=== PATIENT | female | born 1995 | race Caucasian/White ===

== ENCOUNTER 2016-10-15 15:12 | Emergency (ER) | payer OTHER ==
[~2016-10-15] VITALS: Ht 162.6 cm; Wt 89.0 kg
[2016-10-15 15:15] VITALS: Ht 162.6 cm; Wt 89.0 kg
[2016-10-15] MEDS ORDERED: ONDANSETRON (ODT) 4 MG TAB ODT STA (18:38)
[2016-10-15] MEDS ORDERED: HYDROCODONE/APAP (5/325) TAB PO ONE (19:00)
[2016-10-15 19:22] LABS: ADD SCAN DIFF NO
[2016-10-15 19:24] LABS: BASOPHIL # 0.1 10^3/ul (0.0-0.1); BASOPHILS % 0.7 % (0.0-2.0); EOSINOPHILS # 0.3 10^3/ul (0.0-0.5); EOSINOPHILS % 2.7 % (0.0-7.0); HEMATOCRIT 42.2 % (37.0-47.0); HEMOGLOBIN 13.3 g/dl (12.0-16.0); LYMPHOCYTES # 3.6 10^3/ul (0.8-2.9); LYMPHOCYTES % 28.6 % (18.0-55.0); MEAN CORPUSCULAR HEMOGLOBIN 26.8 pg (29.0-33.0); MEAN CORPUSCULAR HGB CONC 31.5 g/dl (32.0-37.0); MEAN CORPUSCULAR VOLUME 84.9 fl (72.0-104.0); MEAN PLATELET VOLUME 9.6 fl (7.4-10.4); MONOCYTE # 0.7 10^3/ul (0.3-0.9); MONOCYTES % 5.5 % (0.0-13.0); NEUTROPHIL # 7.9 10^3/ul (1.6-7.5); NEUTROPHILS % 62.3 % (30.0-74.0); PLATELET COUNT 347 10^3/UL (140-415); RED BLOOD COUNT 4.97 10^6/ul (4.20-5.40); RED CELL DISTRIBUTION WIDTH 12.9 % (11.5-14.5); WHITE BLOOD COUNT 12.7 10^3/ul (4.8-10.8)
[2016-10-15 19:29] LABS: ADD UMIC NO; URINE BILIRUBIN (Dip) NEGATIVE (NEGATIVE); URINE BLOOD (Dip) NEGATIVE (NEGATIVE); URINE COLOR LT. YELLOW (YELLOW); URINE GLUCOSE (Dip) NEGATIVE (NEGATIVE); URINE KETONES (Dip) NEGATIVE (NEGATIVE); URINE LEUKOCYTE ESTERASE (Dip) NEGATIVE (NEGATIVE); URINE NITRITE (Dip) NEGATIVE (NEGATIVE); URINE TOTAL PROTEIN (Dip) NEGATIVE (NEGATIVE); URINE UROBILINOGEN (Dip) 0.2 E.U./dL (0.1-1.0)
[2016-10-15 19:45] LABS: ALBUMIN 4.8 g/dl (3.3-4.9)
[2016-10-15 19:48] LABS: ALBUMIN/GLOBULIN RATIO 1.23; BILIRUBIN,INDIRECT 0.1 mg/dl (0-1.1); BILIRUBIN,TOTAL 0.1 mg/dl (0.2-1.3); CREATININE 0.58 mg/dl (0.44-1.00); TOTAL PROTEIN 8.7 g/dl (6.1-8.1)
[2016-10-15 19:49] LABS: CALCIUM 9.8 mg/dl (8.4-10.2)
--- NOTE | 2016-10-15 20:40 | RADRPT ---
PROCEDURE: CT Abdomen and Pelvis without contrast CLINICAL INDICATION: Lower abdominal pain TECHNIQUE: Transaxial images were obtained through the abdomen and pelvis on a multi-slice scanner without the intravenous contrast administration. No oral contrast had previously been given. Sagit chas and coronal re-formations were subsequently reconstructed. One or more of the following dose reduction techniques were used: - Automated exposure control. - Adjustment of the mA and/or kV according to patient size. - Use of iterative reconstruction technique. Radiation dose: CTDIvol = 18.27 mGy; DLP = 1180.64 mGy-cm. COMPARISON: No prior studies are available for comparison. FINDINGS: Lung bases: The visualized lung bases appear unremarkable. Liver: The liver is mildly enlarged with no focal lesion identified. Gallbladder: The gallbladder is contracted but no radiopaque stone is evident. Bile ducts: The intra and extrahepatic bile ducts are normal in caliber. Pancreas: Appears normal with no mass or inflammation evident. Spleen: The spleen is borderline enlarged. Adrenals: Normal with no mass identified. Kidneys, ureters and bladder: The kidneys are normal in size and there is no mass, pathological calc ification, or hydronephrosis evident. There is no perinephric stranding. The ureters are normal in c aliber and no ureteroliths are identified. The bladder is suboptimally distended. Reproductive organs: The uterus deviates slightly to the left of midline. A 3.5 cm right adnexal [address] is evident. Stomach and bowel: The stomach is unremarkable. There is substantial stool within the colon. The t erminal ileum appears to protrude through the ileocecal valve but there is no evidence of bowel obst ruction or inflammation. Appendix: Portions of an unremarkable appearing vermiform appendix are evident. Peritoneum: No free intraperitoneal fluid or air is identified. Aorta: Normal in caliber with no aneurysmal dilatation. IVC: Unremarkable. Lymph nodes: No pathologically enlarged nodes are identified. Osseous structures: A 1.3 cm air containing cyst is seen within the left sacral ala. A 6 mm cyst is seen within the right ilium. IMPRESSION: 1. Although the terminal ileum appears to protrude through the ileocecal valve into the colon, ther e is no evidence of bowel obstruction or inflammation. Substantial stool seen to the colon and a no rmal vermiform appendix is evident. 2. No evidence of urinary outflow obstruction or ureterolithiasis. 3. 3.5 cm right adnexal cyst. 4. Mild hepatomegaly with no focal lesion and borderline splenomegaly. 5. There is no free intraperitoneal fluid or air. 6. A 1.3 cm air containing cyst is seen in the left sacral ala and a 6 mm cyst is seen within the r ight ilium. Findings of early and minimal ileocolic intussusception were telephoned by Bogdan Carlson MD to Inez RodríguezNeftaly on 10/15/2016 at 2030 hours. Physician Yovana Date Time Electronically viewed and signed by Virgen Carlson Physician on 10/15/2016 20:39 RH/
--- NOTE | 2016-10-15 21:57 | RADRPT ---
PROCEDURE: Ultrasound of the bilateral lower extremity venous system. CLINICAL INDICATION: Bilateral leg pain and swelling, deep venous thrombosis TECHNIQUE: Sumner scale with and without compression, color doppler, spectral doppler of the venous system of the bilateral lower extremities was performed. Venous augmentation maneuvers were utilized . COMPARISON: No prior studies are available for comparison. FINDINGS: RIGHT: Common femoral vein: Patent. Femoral vein: Patent. Popliteal vein: Patent. Calf veins: Patent. No soft tissue abnormalities are identified. LEFT: Common femoral vein: Patent. Femoral vein: Patent. Popliteal vein: Patent. Calf veins: Patent. No soft tissue abnormalities are identified. IMPRESSION: No evidence of a deep vein thrombosis within the bilateral lower extremities. RPTAT: AADD .Darnell Sears MD, MD Date Time Electronically viewed and signed by .Darnell Sears MD, on 10/15/2016 21:57 .B/
[2016-10-15 22:43] VITALS: PULSE 71; RESP 20
--- NOTE | 2016-10-16 04:46 | ERD ---
ER Documentation Chief Complaint Date/Time DATE: 10/16/16 TIME: 04:32 Chief Complaint ear pain,lower ap, left ankle pain HPI This is a 21-year-old female who presents to the ED with lower abdominal pain for 3 weeks associated with bilateral ear pain and right lower extremity swelling. Abdominal pain is sharp, gradual yet intermittent. Pain is aggravated upon movement. Patient did not take any medications for symptom relief. Patient has no medical or surgical history. Denies any recent history of fever, headache, chest pain, shortness of breath, nausea, vomiting, constipation, diarrhea or dysuria. No recent sick contacts or foreign travel. Last menstrual period was during the last week of August ROS All systems reviewed and are negative except as per history of present illness. Medications Home Meds No Active Prescriptions or Reported Meds Allergies Allergies: Coded Allergies: No Known Allergy (Unverified , 07/17/14) PMhx/Soc Medical and Surgical Hx: pt denies Medical Hx, pt denies Surgical Hx History of Surgery: No Anesthesia Reaction: No Hx Neurological Disorder: No Hx Respiratory Disorders: No Hx Cardiac Disorders: No Hx Psychiatric Problems: No Hx Miscellaneous Medical Probl: No Hx Alcohol Use: No Hx Substance Use: No Hx Tobacco Use: No Physical Exam Vitals Vital Signs Date Time Temp Pulse Resp B/P Pulse Ox O2 Delivery O2 Flow Rate FiO2 10/15/16 22:43 71 20 100 Room Air 2.0 10/15/16 15:15 98.1 78 20 130/76 99 Physical Exam Physical Exam CONST: Well-developed, well-nourished, in no acute distress. Nontoxic in appearance. HEENT: Erythematous right auditory canal. Atraumatic. Normal conjunctiva. EOM intact. TM intact. Clear oropharnyx without erythema. No uvular deviation. Moist mucous membranes. Supple neck. No meningismus. No submandibular induration. RESP: Clear to auscultation bilaterally. No wheezing. CARDIO: Regular rate and rhythm, no murmurs. ABD: Diffuse tenderness in the lower abdominal area, R>L. Abdomen is soft and nondistended. No McBurney's point tenderness. No guarding or rigidity. No peritoneal signs. SKIN: No petechiae or rashes. BACK: No midline or flank tenderness. EXT: Right lower extremity edema +1. Distal pulses equal and bilateral. NEURO: Awake and alert, appropriate for age. 5/5 strength in all extremities. Normal speech. Steady gait. Result Diagram: 10/15/16190910/15/161909 Results 24 hrs Laboratory Tests Test 10/15/16 19:10 10/15/16 19:20 White Blood Count 12.710^3/ul Red Blood Count 4.9710^6/ul Hemoglobin 13.3g/dl Hematocrit 42.2% Mean Corpuscular Volume 84.9fl Mean Corpuscular Hemoglobin 26.8pg Mean Corpuscular Hemoglobin Concent 31.5g/dl Red Cell Distribution Width 12.9% Platelet Count 59686^3/UL Mean Platelet Volume 9.6fl Neutrophils % 62.3% Lymphocytes % 28.6% Monocytes % 5.5% Eosinophils % 2.7% Basophils % 0.7% Nucleated Red Blood Cells % 0.0/100WBC Neutrophils # 7.910^3/ul Lymphocytes # 3.610^3/ul Monocytes # 0.710^3/ul Eosinophils # 0.310^3/ul Basophils # 0.110^3/ul Nucleated Red Blood Cells # 0.010^3/ul Sodium Level 140mmol/L Potassium Level 4.0mmol/L Chloride Level 97mmol/L Carbon Dioxide Level 29mmol/L Anion Gap 18 Blood Urea Nitrogen 8mg/dl Creatinine 0.58mg/dl Glucose Level 88mg/dl Calcium Level 9.8mg/dl Total Bilirubin 0.1mg/dl Direct Bilirubin 0.00mg/dl Indirect Bilirubin 0.1mg/dl Aspartate Amino Transf (AST/SGOT) 25IU/L Alanine Aminotransferase (ALT/SGPT) 34IU/L Alkaline Phosphatase 67IU/L B-Type Natriuretic Peptide 36PG/ML Total Protein 8.7g/dl Albumin 4.8g/dl Globulin 3.90g/dl Albumin/Globulin Ratio 1.23 Lipase 71U/L Urine Color LT. YELLOW Urine Clarity SLIGHTLY CLOUDY Urine pH 7.5 Urine Specific Bland 1.010 Urine Ketones NEGATIVE Urine Nitrite NEGATIVE Urine Bilirubin NEGATIVE Urine Urobilinogen 0.2 E.U./dL Urine Leukocyte Esterase NEGATIVE Urine Hemoglobin NEGATIVE Urine Glucose NEGATIVE% Urine Total Protein NEGATIVE Current Medications Medications (Trade) Dose Ordered Sig/Dar Route PRN Reason Start Time Stop Time Status Last Admin Dose Admin Acetaminophen/ Hydrocodone Bitart (Emelle (5/325)) 1 tab ONCE ONCE PO 10/15/16 19:00 10/15/16 19:01 DC 10/15/16 19:15 Ondansetron HCl (Zofran Odt) 4 mg ONCE STAT ODT 10/15/16 18:38 10/15/16 18:39 DC 10/15/16 19:15 PROCEDURE: CT Abdomen and Pelvis without contrast CLINICAL INDICATION: Lower abdominal pain TECHNIQUE: Transaxial images were obtained through the abdomen and pelvis on a multi-slice scanner without the intravenous contrast administration. No oral contrast had previously been given. Sagittal and coronal re-formations were subsequently reconstructed. One or more of the following dose reduction techniques were used: - Automated exposure control. - Adjustment of the mA and/or kV according to patient size. - Use of iterative reconstruction technique. Radiation dose: CTDIvol = 18.27 mGy; DLP = 1180.64 mGy-cm. COMPARISON: No prior studies are available for comparison. FINDINGS: Lung bases: The visualized lung bases appear unremarkable. Liver: The liver is mildly enlarged with no focal lesion identified. Gallbladder: The gallbladder is contracted but no radiopaque stone is evident. Bile ducts: The intra and extrahepatic bile ducts are normal in caliber. Pancreas: Appears normal with no mass or inflammation evident. Spleen: The spleen is borderline enlarged. Adrenals: Normal with no mass identified. Kidneys, ureters and bladder: The kidneys are normal in size and there is no mass, pathological calcification, or hydronephrosis evident. There is no perinephric stranding. The ureters are normal in caliber and no ureteroliths are identified. The bladder is suboptimally distended. Reproductive organs: The uterus deviates slightly to the left of midline. A 3.5 cm right adnexal cyst is evident. Stomach and bowel: The stomach is unremarkable. There is substantial stool within the colon. The terminal ileum appears to protrude through the ileocecal valve but there is no evidence of bowel obstruction or inflammation. Appendix: Portions of an unremarkable appearing vermiform appendix are evident. Peritoneum: No free intraperitoneal fluid or air is identified. Aorta: Normal in caliber with no aneurysmal dilatation. IVC: Unremarkable. Lymph nodes: No pathologically enlarged nodes are identified. Osseous structures: A 1.3 cm air containing cyst is seen within the left sacral ala. A 6 mm cyst is seen within the right ilium. IMPRESSION: 1. Although the terminal ileum appears to protrude through the ileocecal valve into the colon, there is no evidence of bowel obstruction or inflammation. Substantial stool seen to the colon and a normal vermiform appendix is evident. 2. No evidence of urinary outflow obstruction or ureterolithiasis. 3. 3.5 cm right adnexal cyst. 4. Mild hepatomegaly with no focal lesion and borderline splenomegaly. 5. There is no free intraperitoneal fluid or air. 6. A 1.3 cm air containing cyst is seen in the left sacral ala and a 6 mm cyst is seen within the right ilium. Findings of early and minimal ileocolic intussusception were telephoned by Bogdan Carlson MD to CholoOsmin Chase on 10/15/2016 at 2030 hours. Physician Yovana Date Time Electronically viewed and signed by Physician Yovana on 10/15/2016 20:39 PROCEDURE: Ultrasound of the bilateral lower extremity venous system. CLINICAL INDICATION: Bilateral leg pain and swelling, deep venous thrombosis TECHNIQUE: Sumner scale with and without compression, color doppler, spectral doppler of the venous system of the bilateral lower extremities was performed. Venous augmentation maneuvers were utilized. COMPARISON: No prior studies are available for comparison. FINDINGS: RIGHT: Common femoral vein: Patent. Femoral vein: Patent. Popliteal vein: Patent. Calf veins: Patent. No soft tissue abnormalities are identified. LEFT: Common femoral vein: Patent. Femoral vein: Patent. Popliteal vein: Patent. Calf veins: Patent. No soft tissue abnormalities are identified. IMPRESSION: No evidence of a deep vein thrombosis within the bilateral lower extremities. RPTAT: AADD .Darnell Sears MD, MD Date Time Electronically viewed and signed by .Darnell Sears MD, on 10/15/2016 21:57 Procedures/[facility] EMERGENCY DEPARTMENT COURSE/MEDICAL DECISION MAKING This is a 21-year-old female who comes to the emergency room secondary to complaints of abdominal pain, bilateral ear pain and left lower extremity swelling.. The patient was given Zofran and Emelle for abdominal pain and nausea. CBC, CMP, lipase, BNP and urinalysis were ordered. CT of the abdomen was ordered due to diffuse lower abdominal pain. Results was reviewed by the radiologist and shows intussusception. Venous ultrasound of the lower extremities was also ordered to rule out DVT. Result is negative per radiologist. Case was discussed with Dr. López and patient will be admitted Dr. Garcia will be the admitting MD. Plan of care was explained to the patient, patient refused to be admitted because she has to attend school tomorrow. Explained the risks of leaving AGAINST MEDICAL ADVICE, such as worsening illness or . Patient signed the AGAINST MEDICAL ADVICE form per RN. Departure Diagnosis: Primary Impression: Intussusception LEANDER CHASE Oct 16, 2016 04:46
== END 2016-10-16 01:40 | disposition left against medical advice (07) ==
LOC: FTE 15:12
DX: K56.1 Intussusception (principal)
CPT/HCPCS: 74176; 80053; 81003; 83690; 83880; 85025; 93970; Z7610; 36415